=== PATIENT | female | born 1940 | race Caucasian/White ===

== ENCOUNTER 2016-06-19 06:43 | Day surgery (SDC) | payer MEDICARE ==
[~2016-06-19] VITALS: Ht 160 cm; Wt 58.7 kg
--- NOTE | ~2016-06-19 | OR ---
PATIENT'S NAME: MANUELITO GALICIA [facility] AGE: 76 Y [address] ROOM: [place] [address] LOCATION: [facility] [place] ADMIT DATE: 06/19/2016 OR/Procedure Report DISCHARGE DATE: 06/19/2016 FAMILY PHYSICIAN: Hermes Blackmon MD ATTENDING PHYSICIAN: Nina Santiago SURGEON: Nina Santiago MD PUBLIC INFORMATION SPECIALIST: DATE OF PROCEDURE: 06/19/2016 PREOPERATIVE DIAGNOSES: 1. Renal insufficiency. 2. Bilateral hydronephrosis. 3. Idiopathic retroperitoneal fibrosis. 4. Overactive bladder. 5. Urinary incontinence. 6. Painful bladder syndrome. POSTOPERATIVE DIAGNOSES: 1. Renal insufficiency. 2. Bilateral hydronephrosis. 3. Idiopathic retroperitoneal fibrosis. 4. Overactive bladder. 5. Urinary incontinence. 6. Painful bladder syndrome. OPERATIVE PROCEDURES: 1. Cystoscopy with bilateral ureteral stent exchange. 2. Cystoscopy with bladder Botox injection (300 units). ANESTHESIA ADMINISTERED: Monitored anesthesia care. INDICATIONS FOR PROCEDURE: The patient is a pleasant 76-year-old female with history of renal insufficiency, bilateral hydronephrosis, and idiopathic retroperitoneal fibrosis. She most recently underwent bilateral ureteral stent exchange on June 19, 2016 and cystoscopy with bladder Botox injection 200 units. She still has some symptoms of overactive bladder despite the Botox and so we had discussed going up on the dosage to 300 units today. The patient was explained the risks, benefits, indications, and alternatives to above procedure and wished to proceed and consented freely. DESCRIPTION OF OPERATION: The patient was brought back to the operating room, where she was placed on the OR table in the supine position. A procedural time-out was called where the patient identification, surgical site, and procedure were then verified. We also did verify that the patient received an IV Levaquin antibiotic within an hour of beginning the procedure. The patient PATIENT'S NAME: MANUELITO GALICIA [facility] AGE: 76 Y [address] ROOM: [place] [address] LOCATION: [facility] [place] ADMIT DATE: 06/19/2016 OR/Procedure Report DISCHARGE DATE: 06/19/2016 FAMILY PHYSICIAN: Hermes Blackmon MD ATTENDING PHYSICIAN: Nina Santiago was then moved and placed in the low lithotomy position after undergoing successful administration of monitored anesthesia care. She was then prepped and draped in the usual sterile fashion. I began by advancing a rigid cystoscope easily into the patient's urinary bladder. She did have findings consistent with chronic cystitis including pale appearance to the mucosa with several areas of punctate mucosal erythema, multiple bladder trabeculations, and a small capacity bladder. Her ureteral orifices were noted to be in their orthotopic location with the distal curl of the bilateral indwelling ureteral stents visualized. There was no evidence of any bladder tumors. I then used the stent graspers to grab the distal curl of the indwelling right ureteral stent and brought this out through her urethral meatus. I then advanced a Sensor guidewire through the right ureteral stent and up to the patient's right renal collecting system and removed the stent leaving the wire in place. I then placed a new 6-Polish x 22 cm ureteral stent deploying it, noting a good curl fluoroscopically in the patient's right renal collecting system as well as a good curl fluoroscopically in the patient's bladder. I then used the stent graspers to grab the distal curl of the left indwelling ureteral stent and this was brought out through her urethral meatus. I then advanced a Sensor guidewire through the stent and up to the patient's left lower pole collecting system. I then removed the stent in its entirety leaving the wire in place. I then placed a new 6-Polish x 22 cm ureteral stent deploying it, noting a good curl fluoroscopically in the patient's left renal collecting system as well as a good curl fluoroscopically in the patient's bladder. I then reentered with the cystoscope. I had already prepared Botox freshly on the back table at the commencement of her procedure. I took 100 units and diluted it with 10 mL of preservative-free injectable saline to create a 10 unit/mL solution and did this 3 times now having a total of 300 units ready for injection. I then began performing my injections with 1 mL into each site at a depth of approximately 4 to 5 mm. I injected the lateral wall, trigone, and posterior bladder wall. Of note, the injections were somewhat difficult in areas given thick fibrotic bladder, which made injecting into the bladder wall with increased difficulty as we needed more pressure to inject into the bladder wall. A total of 30 injections were administered. The bladder was inspected and there was no evidence of any significant bleeding. I then emptied the patient's bladder, the patient was then taken out of the lithotomy position where she was then awoken from monitored anesthesia care, transferred to recovery bed, and transported to the recovery room in good condition. COMPLICATIONS: None. ESTIMATED BLOOD LOSS: Minimal. DRAINS: Bilateral indwelling 6-Polish x 22 cm indwelling ureteral stent. FOLLOWUP PLAN: We will tentatively plan to see her back for followup in PATIENT'S NAME: MANUELITO GALICIA [facility] AGE: 76 Y [address] ROOM: [place] [address] LOCATION: [facility] [place] ADMIT DATE: 06/19/2016 OR/Procedure Report DISCHARGE DATE: 06/19/2016 FAMILY PHYSICIAN: Hermes Blackmon MD ATTENDING PHYSICIAN: Nina Santiago approximately 6 months for bilateral indwelling ureteral stent exchange. If she does not have any improvement on the 300 unit Botox injection, we may consider her for a trial of InterStim therapy. NINA SANTIAGO MD GP/modl /[id number] CC: MD Harley Epstein MD d: 06/19/16 1100 t: 06/19/16 1723, OPERATIVE SUMMARY
[~2016-06-19 06:43] MED LIST changes: -MYCAMINE100 MG IV; -NORVASC10 MG PO; -TYLENOL EXTRA500 MG PO
[2016-06-19 07:20] LABS: BASOPHIL % 0.4 %; EOSINOPHIL # 0.2 K/uL (0.0-0.5); EOSINOPHIL % 1.7 %; HEMATOCRIT 34.2 % (33.0-46.0); HEMOGLOBIN 10.6 g/dL (10.0-15.0); IMMATURE GRANULOCYTE # 0.1 K/uL (0.0-0.3); IMMATURE GRANULOCYTE % 0.5 %; LYMPHOCYTE # 1.2 K/uL (0.8-4.0); LYMPHOCYTE % 10.3 %; MCV 93.7 fl (83.0-98.0); MONOCYTE # 0.4 K/uL (0.0-1.0); MONOCYTE % 3.3 %; MPV 9.2 fl (9.4-12.4); NEUTROPHIL # (ANC) 9.4 K/uL (1.8-7.8); NEUTROPHIL % 83.8 %; NRBC % 0 /100WBC (0-0.00); PLATELET COUNT 362 K/uL (150-450); RDW-CV 14.9 % (11.9-14.6); WBC 11.2 K/uL (4.0-11.0)
[2016-06-19 07:21] LABS: RBC 3.65 M/uL (3.50-5.50)
[2016-06-19 07:38] LABS: ALBUMIN 3.2 gm/dL (3.5-5.0); ANION GAP 13.6 (10.0-19.0); CALCIUM 9.6 mg/dL (8.5-10.5); CREATININE 2.3 mg/dL (0.5-1.1); POTASSIUM 4.6 mMol/L (3.7-5.1); TOTAL BILIRUBIN 0.4 mg/dL (0.0-1.5); TOTAL PROTEIN 8.9 g/dL (6.0-8.4)
[2016-06-19] MEDS ORDERED: TYLENOL EXTRA500 MG PO (19:54)
== END 2016-06-19 10:12 | disposition disaster alternative care site (69) ==
LOC: GSDC 06:43 → GPOC 07:00 → GSDC 10:12 → GPOC 13:00
PROVIDERS: Urology
PROC: 0T788DZ Dilation of Bilateral Ureters with Intraluminal Device, Via Natural or Artificial Opening Endoscopic (ICD-10-PCS; principal; 2016-06-19)
PROC: 0TP98DZ Removal of Intraluminal Device from Ureter, Via Natural or Artificial Opening Endoscopic (ICD-10-PCS; 2016-06-19)
PROC: 3E0K8GC Introduction of Other Therapeutic Substance into Genitourinary Tract, Via Natural or Artificial Opening Endoscopic (ICD-10-PCS; 2016-06-19)
DX: N13.30 Unspecified hydronephrosis (principal); N18.4 Chronic kidney disease, stage 4 (severe); N32.81 Overactive bladder; R32 Unspecified urinary incontinence; N13.5 Crossing vessel and stricture of ureter without hydronephrosis; E11.29 Type 2 diabetes mellitus with other diabetic kidney complication; D50.9 Iron deficiency anemia, unspecified; E78.5 Hyperlipidemia, unspecified
CPT/HCPCS: C1769; J0585; J1956; J2001; J7030

== ENCOUNTER 2016-06-19 14:42 | Inpatient (IN) | payer MEDICARE ==
[~2016-06-19] VITALS: Ht 160 cm; Wt 64.6 kg
--- NOTE | ~2016-06-19 | DS ---
PATIENT'S NAME: MANUELITO GALICIA [facility] AGE: 76 Y [address] ROOM: [address] [address] LOCATION: [facility] [place] ADMIT DATE: 06/19/2016 Discharge Summary DISCHARGE DATE: 06/25/2016 FAMILY PHYSICIAN: Hermes Blackmon MD ATTENDING PHYSIC[facility]SE: The patient was admitted with systemic inflammatory response syndrome, secondary to her urologic procedure. She developed a fever and was found to have acute kidney injury. The patient was admitted, pancultured, and started on Levaquin. Tylenol was used for her fevers. Urology followed up with the patient on 06/20/2016 and recommended continuing the antibiotics at this time while cultures were pending. Sugars and laboratory studies were followed closely. Dr. Acosta was consulted for acute kidney injury. The patient was placed on heparin subcutaneous for DVT prophylaxis and sliding scale insulin was ordered for close glucose monitoring. The patient was changed to Zyvox and meropenem on the . Nephrology consulted later on the and felt that the DARY was due to her current sepsis. The patient did have some loose stools and C. diff was ruled out. The patient did have some hypotension and was given fluid boluses as well as potassium boluses. On the , the patient was feeling some better. She did undergo CT scan of the abdomen and pelvis, which shows bilateral hydronephrosis with stents in place. On the , blood culture was positive for anaerobic yeast and micafungin was initiated. The patient's creatinine continued to trend down with her IV fluids. We were able to do a voiding trial on 06/22/2016, which was successful. ID consult was placed on the as well. On the , we were able to discontinue the Levaquin as all cultures had been negative for bacterial sources. On the , it was felt that the patient could safely be discharged pending visit from Infectious Disease. However, in order to setup for outpatient antifungals, we did have to keep the patient one day longer. PICC was placed for long-term therapy. Infectious Disease recommended we continue the micafungin 100 mg a day through 07/05/2016. All paperwork was initiated and orders were received from the Cancer [facility]; and on the , it was felt that the patient could safely be discharged without any further workup. The patient was agreeable to this plan of action. DIAGNOSTICS LABORATORY STUDIES: Sedimentation rate on the 4th was 76. On admission, white blood cell count was 12.2, hemoglobin 9, hematocrit 28.9, and platelets 237. Closer to discharge, white blood cell count was 3.2, hemoglobin was 7.7, hematocrit 24.5, and platelets are 126. Accu-Cheks ranged from 72 to 306. Iron studies done on the 3rd shows serum iron at 37 mcg, TIBC was 213, percent saturation was 17, hemoglobin A1c was 6.9, CRP was 17. On admission, sodium 141, potassium 4.0, chloride 111, bicarb 18, glucose 204, BUN 52, creatinine 2.2, total cholesterol 99, triglycerides 109, HDL 46, LDL 32, and ferritin was 1288.4. Procalcitonin went from 0.84 up to 22 and back down to 7.5. P-ANCA and C-ANCA were both negative. Double-stranded DNA was PATIENT'S NAME: MANUELITO GALICIA [facility] AGE: 76 Y [address] ROOM: [address] [place] [id number] LOCATION: [facility] [place] ADMIT DATE: 06/19/2016 Discharge Summary DISCHARGE DATE: 06/25/2016 FAMILY PHYSICIAN: Hermes Blackmon MD ATTENDING PHYSICIAN: Eleonora Chow negative. Garvin light chains were elevated at 3.6. Lambda and kappa lambda were within normal limits. Urine protein electrophoresis suggest tubular typewritten proteinuria shows increased urine excretion of low-molecular weight protein such as retinol binding, proteins, and beta-2 microglobulin. Blood cultures from 06/19/2016 showed [place]. Urine culture from 06/20/2016 also showed [place]. Subsequent blood and urine cultures were negative. TINO titer was negative. Chest x-ray on 06/20/2016 shows normal portable chest, on 06/21/2016, it was again normal, and on 06/22/2016 2-view shows small bilateral pleural fluid collections, heart size and pulmonary vasculature within normal limits. CT scan of the abdomen and pelvis, without contrast, on 06/20/2016, shows mild bilateral hydronephrosis, chronic, with ureteral stents in place. Nonspecific perinephric stranding. Pyelonephritis cannot be excluded. Prominent stool suggesting constipation noted. Complete abdominal ultrasound shows [id number] bilateral hydronephrosis with ureteral stent in place. Echogenic renal pelvis bilaterally. No evidence of infection elsewhere in the body. DISCHARGE INSTRUCTIONS: The patient is discharged home under the care of Dr. Hermes Blackmon and will see him in 1 week. She will see Dr. Santiago in 4-6 weeks in the clinic. Her diet is diabetic. Activity is as tolerated. The patient was instructed to get daily IV micafungin at [facility], starting on 06/25/2016, she is to present there at 2:30. DISCHARGE MEDICATIONS: 1. Tylenol 1000 mg every 6 hours as needed. 2. Micafungin as directed. 3. Amlodipine 10 mg daily. 4. Lopressor 12.5 mg p.o. twice daily. 5. Lipitor 80 mg at bedtime. 6. NovoLog 8 units subcu 3 times daily before meals. 7. Lantus 15 units subcu at bedtime. 8. Protonix 40 mg daily. 9. MiraLAX 17 g daily p.r.n. 10. Potassium chloride 10 mEq daily. 11. Florastor 250 mg twice daily. 12. Toviaz 8 mg p.o. at bedtime. 13. Tylenol PM 1 tab at bedtime. 14. Multivitamin 1 tab daily. We do appreciate participating in this patient's care and thank you very much for the ability to serve her while hospitalized at [facility]. Time spent coordinating details of discharge was greater than 30 minutes of which was spent coordinating with consulting physicians, care management, completion of medication reconciliation, and education to the patient and family on the above-mentioned diagnoses. PATIENT'S NAME: MANUELITO GALICIA [facility] AGE: 76 Y [address] ROOM: [place] [address] LOCATION: [facility] [place] ADMIT DATE: 06/19/2016 Discharge Summary DISCHARGE DATE: 06/25/2016 FAMILY PHYSICIAN: Hermes Blackmon MD ATTENDING PHYSICIAN: Eleonora Chow BECCA GARDINER FOR ELEONORA CHOW MD LISSET/modl /[id number] d: 07/08/16 0250 t: 07/09/16 0914, DISCHARGE SUMMARY
--- NOTE | ~2016-06-19 | HP ---
PATIENT'S NAME: MANUELITO GALICIA [facility] AGE: 76 Y [address] ROOM: [place] [address] LOCATION: [facility] [place] ADMIT DATE: 06/19/2016 History & Physical DISCHARGE DATE: FAMILY PHYSICIAN: Hermes Blackmon MD ATTENDING PHYSICIAN: Eleonora Chow DATE OF SERVICE: CHIEF COMPLAINT: SIRS, fever, and chills. HISTORY OF PRESENT ILLNESS: This is a 76-year-old female with a long history of complicated urogenital problems who presents to the emergency room with complaints of fever and chills since midday today. The patient is known to have recurrent ureteral exchange procedures and Botox injections for her urological problems requiring multiple procedures for that. Apparently, she had another ureteral exchange procedure with Botox injection earlier today with Dr. Santiago and returned home. However, shortly following returning home, she started having symptoms of fever and chills with temperature that she measured at home initially being in the low 90s going high up to 102 the last time she checked it. The patient also during this time complained of having generalized shaking as well as associated nausea and vomiting with this. Also, complains of some suprapubic abdominal pain as well. The patient however denies any chest pain, shortness of breath, dizziness, or lightheadedness. No complaints of diarrhea or constipation. PAST MEDICAL HISTORY: The patient has a history of hyperlipidemia and type 2 diabetes. SOCIAL HISTORY: The patient lives at home by herself and is generally able to do her chores by herself. Denies any history of smoking or alcohol use. FAMILY HISTORY: The patient has a history of diabetes in both her parents. REVIEW OF SYSTEMS: A 10-point review of systems was conducted and were all negative except as mentioned in the HPI. PHYSICAL EXAMINATION: VITAL SIGNS: Blood pressure 126/62, pulse 86, respiratory rate is 16, temperature 98.2, and saturating 98% on room air. HEENT: The patient has dry mucous membranes, but no conjunctival pallor or PATIENT'S NAME: MANUELITO GALICIA [facility] AGE: 76 Y [address] ROOM: [place] [address] LOCATION: [facility] [place] ADMIT DATE: 06/19/2016 History & Physical DISCHARGE DATE: FAMILY PHYSICIAN: Hermes Blackmon MD ATTENDING PHYSICIAN: Eleonora Chow scleral icterus noted. GENERAL: The patient is awake, alert, and oriented x3, in no acute distress. SKIN: Without rash or lesions. HEART: S1, S2, regular rate and rhythm. CHEST: Clear to auscultation bilaterally. ABDOMEN: Soft, mild tenderness to the suprapubic and left lower quadrant area, positive bowel sounds. EXTREMITIES: Without edema. MUSCULOSKELETAL: Without joint or muscle pain. NEURO: Grossly nonfocal. LABORATORY DATA: White blood cell count 12.2, hemoglobin 9, hematocrit 28.9, and platelets 257. UA positive for pyuria and leuk esterase. ASSESSMENT AND PLAN: 1. Systemic inflammatory response syndrome, likely following urologic procedure. The patient just had a ureteral exchange procedure and Botox injection with Dr. Santiago earlier in the day. This is likely a result of that. A urinalysis does show some possible urinary tract infection. Looked out for past cultures and I cannot see anything resistant that she has grown in the past. Also, start her on Levaquin renally dosed for now. 2. Acute kidney injury on chronic kidney disease, 3. The patient's creatinine in December 18.3 and today it is 2.2. We will hydrate and monitor kidney function with daily labs. 3. Type 2 diabetes. We will resume the patient's regimen as well as use sliding scale insulin as needed. 4. Deep vein thrombosis prophylaxis. We will use subcutaneous heparin. ELEONORA CHOW MD BG/modl /[id number] D: 357 T: [id number] HISTORY & PHYSICAL
--- NOTE | ~2016-06-19 | ER ---
PATIENT'S NAME: MANUELITO GALICIA [facility] AGE: 76 Y [address] ROOM: [place] [address] LOCATION: [facility] [place] ADMIT DATE: 06/19/2016 ER/Outpatient Report DISCHARGE DATE: FAMILY PHYSICIAN: GERHARD JACOBO MD ATTENDING PHYSICIAN: ELEONORA CHOW Time of Arrival: 1442 hours. Time of Evaluation/Exam: 1442 hours. CHIEF COMPLAINT: Fever. HISTORY OF PRESENT ILLNESS: The patient states that she had a procedure done this morning around 9 o'clock, where they placed two renal stents and injected her with Botox. She was discharged to home around 10 o'clock. She was feeling fine and then about 1 o'clock this afternoon, she developed a fever and has increased weakness. She states this happened the last time she had a similar procedure back at the end of November. She has taken Tylenol for her fever at home. She did call 911, was transported here per EMS, and paramedics. They did start an IV in her right hand and started fluids of normal saline. She denies having any chest pain. Has not felt short of breath. Has some generalized nausea, but no vomiting. Does have some lower abdominal discomfort. She states that it tends to be chronic at times because of her history of cystitis. ALLERGIES: SULFA AND METFORMIN. CURRENT MEDICATIONS: On the chart and reviewed by me. PAST MEDICAL HISTORY: Includes: 1. Chronic kidney disease. 2. Idiopathic retroperitoneal fibrosis. 3. Overactive bladder. 4. Urinary incontinence. 5. Cystitis. 6. Hypertension. 7. GERD. 8. Elevated cholesterol. PAST SURGICAL HISTORY: 1. Appendectomy. 2. Tonsillectomy. PATIENT'S NAME: MANUELITO GALICIA [facility] AGE: 76 Y [address] ROOM: [address] [address] LOCATION: [facility] [place] ADMIT DATE: 06/19/2016 ER/Outpatient Report DISCHARGE DATE: FAMILY PHYSICIAN: GERHARD JACOBO MD ATTENDING PHYSICIAN: ELEONORA CHOW 3. x3. 4. Stent placement with Botox, numerous times, the last being today. SOCIAL HISTORY: She lives at home alone. Denies use of tobacco, drugs, or alcohol. REVIEW OF SYSTEMS: All negative other than those mentioned in the HPI. PHYSICAL EXAMINATION: VITAL SIGNS: She weighed 61.4 kg. Blood pressure is 103/60; pulse of 124; respirations 16; temperature of 102, tympanic; and O2 saturation is 95% on room air. GENERAL: She is awake, alert, and oriented x4. SKIN: [place], warm, and dry. RESPIRATORY: Respirations are even and nonlabored. Lung sounds are clear throughout. HEART: Regular rate and rhythm. ABDOMEN: Soft and nondistended. Bowel sounds are present. LABORATORY DATA: Laboratory work was drawn. Her CBC shows a white count of 12.2 with a hemoglobin of 9.0, hematocrit of 28.9, and her ANC is 11.9. Sodium is 141, potassium is 4 with a chloride of 111, and BUN 52 with a creatinine of 2.2. Her creatinine was 2.3 prior to start of the procedure. GFR is 22. Catheterized UA was obtained. It shows 500 leukocytes, but negative nitrites. The micro shows packed white blood cells, negative bacteria. Lactate is 2.4 with a procalcitonin of 0.84. Her Accu-Chek was 220, and Chem glucose shows 204. The patient was given fluids, Zofran 4 mg IV, and Tylenol [address] Santiago was contacted regarding the patient. The patient is to be placed in observation for fever and acute on chronic kidney disease. Dr. Chow was contacted. IMPRESSION: 1. Fever. 2. Acute on chronic kidney disease. PLAN: The patient will be placed on observation in Med-Surg floor with Dr. Chow and Dr. Santiago. The patient and her family verbalized understanding. PATIENT'S NAME: MANUELITO GALICIA [facility] AGE: 76 Y [address] ROOM: [address] [place], [place] [address] LOCATION: [facility] [place] ADMIT DATE: 06/19/2016 ER/Outpatient Report DISCHARGE DATE: FAMILY PHYSICIAN: GERHARD JACOBO MD ATTENDING PHYSICIAN: ELEONORA CHOW APRN FOR MD PARVEEN REECE/christian /[id number] d: 06/19/162120 t: 06/30/16 0641, OUTPATIENT REPORT
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
--- NOTE | ~2016-06-19 | CON ---
PATIENT'S NAME: MANUELITO GALICIA [facility] AGE: 76 Y [address] ROOM: [place] [address] [address]: [facility] [place] ADMIT DATE: 06/19/2016 Consultation DISCHARGE DATE: FAMILY PHYSICIAN: GERHARD JACOBO MD ATTENDING PHYSICIAN: ELEONORA CHOW DATE OF CONSULTATION: 06/24/2016 REFERRING PHYSICIAN: Eleonora Chow MD REASON FOR CONSULTATION: Candidemia. HISTORY OF PRESENT ILLNESS: This is a 76-year-old lady with a history of complicated urogenital problem especially with idiopathic retroperitoneal fibrosis and that causing the bilateral hydronephrosis and has been having bilateral ureteral stents, which been changes. Most recently on 19 June 2016, the patient had a successful change of stent and then discharged; however, that night developed fever up to 102; so, came to the emergency room, she was found to have fever and leukocytosis and blood culture obtained and then broad-spectrum antibiotic. Later, blood culture positive with Shawnee lipolytica and also urine culture positive with pyuria and grew Shawnee glabrata. Antibiotic changed to micafungin and the patient improved and repeat blood culture on 22 of June has been negative. ID consultation requested for antibiotic management. The patient denied any fever or chills, no cough or mucus, no nausea or vomiting, has some loose stool, no burning on urination, no frequent urination, and no side or flank pain. ALLERGIES: SULFA CAUSING ITCHING AND METFORMIN CAUSING DIARRHEA. PAST MEDICAL HISTORY: Hyperlipidemia, type 2 diabetes, and idiopathic retroperitoneal fibrosis. PAST SURGICAL HISTORY: Bilateral ureteral stents. SOCIAL HISTORY: Denies smoking. FAMILY HISTORY: Positive for diabetes. REVIEW OF SYSTEMS: As above. PATIENT'S NAME: MANUELITO GALICIA [facility] AGE: 76 Y [address] ROOM: [place] [id number] LOCATION: [facility] [place] ADMIT DATE: 06/19/2016 Consultation DISCHARGE DATE: FAMILY PHYSICIAN: GERHARD JACOBO MD ATTENDING PHYSICIAN: ELEONORA CHOW MEDICATIONS: Antibiotic nieto has been on micafungin since June, but used to be on meropenem, Zyvox, and levofloxacin, which is stopped on 22 of June. PHYSICAL EXAMINATION: VITAL SIGNS: Blood pressure 157/69, pulse rate 98, respiration 18, temperature 98.0, no fever since 20 June 2016. GENERAL: In NAD. HEENT: Conjunctivae pink. Sclerae not icteric. No stomatitis. NECK: Supple. LUNGS: Sound clear to auscultation bilaterally. HEART: Regular rhythm and rate. ABDOMEN: Bowel sounds positive. No tenderness or rebound tenderness. No CVA tenderness. SKIN: No rash noted. MUSCULOSKELETAL: No joint swelling or pain noted. LABORATORY DATA: White blood cell 3.2, hemoglobin 7.7, platelet 126, and procalcitonin done on 22 of June is 7.5. Chemistry, BUN on 22 of June is 24, creatinine is 1.3. UA done on 19 of June is positive pyuria and micro. Blood culture done on 19 of June total 2 is Shawnee lipolytica, urine culture done on 19 of June is no growth and negative, urine culture done on 20 of June is Shawnee glabrata, colony count is 50,000 to 100,000, on 22 of June, stool C. diff toxin is negative, 22 of June blood culture x2 is no growth, and CT scan done on 20 of June abdomen and pelvis showed that moderate bilateral hydronephrosis chronic with ureteral stent in place. There is nonspecific perinephric stranding. ASSESSMENT AND PLAN: This is a 76-year-old lady with a history of idiopathic retroperitoneal fibrosis and bilateral hydronephrosis has been having stent exchange regularly and on the 19 of June had a stent changes and discharged come back with a fever and leukocytosis found to have candidemia by Shawnee lipolytica also UA was positive with pyuria and urine culture grows Shawnee glabrata and started on micafungin and blood culture clear on 22 of June and the patient denied any urinary symptoms at this point and fever improved and no leukocytosis and the patient doing fine; so, recommend continue intravenous micafungin 100 mg q.24 h. through 05 July 2016 and follow up to ID clinic in 2 weeks and need weekly labs on Wednesday, CBC, CMP, and fax to ID Clinic [phone]. The patient need a PICC line and although micafungin is not great medicine for urinary tract infection because the patient is already improving we will continue intravenous micafungin instead of change it to amphotericin. PATIENT'S NAME: MANUELITO GALICIA [facility] AGE: 76 Y [address] ROOM: [address] [address] LOCATION: [facility] [place] ADMIT DATE: 06/19/2016 Consultation DISCHARGE DATE: FAMILY PHYSICIAN: GERHARD JACOBO MD ATTENDING PHYSICIAN: ELEONORA CHOW MD HUI SMITH/christian /[id number] d: 06/24/16 2306 t: 06/25/16 0910, CONSULTATION REPORT
--- NOTE | ~2016-06-19 | DS ---
PATIENT'S NAME: MANUELITO GALICIA [facility] AGE: 76 Y [address] ROOM: [place] [address] [place] [facility] [place]: 06/19/2016 Discharge Summary DISCHARGE DATE: 06/25/2016 FAMILY PHYSICIAN: Hermes Blackmon MD ATTENDING PHYSICIAN: Eleonora Chow FINAL DIAGNOSES: 1. Sepsis. 2. Fungemia. 3. Obstructive uropathy. 4. Acute tubular necrosis secondary to sepsis. 5. Shawnee urinary tract infection. PROCEDURES PERFORMED: Bilateral stent exchange and Botox by Dr. Santiago. CONSULTANTS ON THE CASE: Dr. Acosta for Nephrology; Dr. Peñaloza for Infectious Disease. HOSPITAL COURSE: Please see details of admission in H and P by Dr. Chow. Briefly, the patient was admitted with systemic inflammatory response syndrome secondary to urologic procedure. The patient developed fever and acute kidney disease secondary to her inflammatory response. BECCA GARDINER FOR ELEONORA CHOW MD LISSET/modl /[id number] d: 07/08/164 t: 07/09/16 0911, DISCHARGE SUMMARY
[2016-06-19 15:24] LABS: BASOPHIL % 0.1 %; EOSINOPHIL % 0.1 %; HEMATOCRIT 28.9 % (33.0-46.0); IMMATURE GRANULOCYTE # 0.1 K/uL (0.0-0.3); IMMATURE GRANULOCYTE % 0.7 %; LYMPHOCYTE # 0.1 K/uL (0.8-4.0); LYMPHOCYTE % 1.1 %; MCH 28.9 pg (27.0-34.0); MCHC 31.1 gm/dL (32.0-36.5); MCV 92.9 fl (83.0-98.0); MONOCYTE % 0.3 %; NEUTROPHIL # (ANC) 11.9 K/uL (1.8-7.8); NEUTROPHIL % 97.7 %; NRBC % 0 /100WBC (0-0.00); RBC 3.11 M/uL (3.50-5.50); RDW-CV 14.9 % (11.9-14.6); WBC 12.2 K/uL (4.0-11.0)
[2016-06-19 15:28] LABS: PLATELET COUNT 237 K/uL (150-450)
[2016-06-19 15:40] LABS: BILIRUBIN URINE NEGATIVE (NEGATIVE); BLOOD URINE 250 /UL (NEGATIVE); GLUCOSE URINE 50 mg/dL (NEGATIVE); KETONE URINE NEGATIVE (NEGATIVE); LEUKOCYTES URINE 500 /UL (NEGATIVE); NITRITE URINE NEGATIVE (NEGATIVE); PROTEIN URINE 500 mg/dL (NEGATIVE); UROBILINOGEN URINE NORMAL (NORMAL)
[2016-06-19 15:45] LABS: ALBUMIN 2.5 gm/dL (3.5-5.0); CALCIUM 8.4 mg/dL (8.5-10.5); CREATININE 2.2 mg/dL (0.5-1.1); TOTAL PROTEIN 7.4 g/dL (6.0-8.4)
[2016-06-19 15:46] LABS: TOTAL BILIRUBIN 0.3 mg/dL (0.0-1.5)
[2016-06-19 16:00] LABS: COLOR URINE YELLOW (YELLOW); TURBIDITY URINE 4+ (CLEAR)
[2016-06-19 16:08] LABS: RBC URINE FULL FIELD #/HPF (NEGATIVE); WBC URINE PACKED FIELD #/HPF (NEGATIVE)
[2016-06-19 16:09] LABS: EPITHELIAL URINE NEGATIVE #/HPF (NEGATIVE)
[2016-06-19 16:10] LABS: BACTERIA URINE NEGATIVE (NEGATIVE)
[2016-06-19] MEDS ORDERED: TYLENOL EXTRA500 MG PO (19:54)
[2016-06-19 22:04] LABS: BILIRUBIN URINE NEGATIVE (NEGATIVE); BLOOD URINE 250 /UL (NEGATIVE); GLUCOSE URINE NEGATIVE (NEGATIVE); KETONE URINE 5 mg/dL (NEGATIVE); LEUKOCYTES URINE 500 /UL (NEGATIVE); NITRITE URINE POSITIVE (NEGATIVE); PROTEIN URINE 500 mg/dL (NEGATIVE); UROBILINOGEN URINE NORMAL (NORMAL)
[2016-06-19 22:08] LABS: COLOR URINE PINK (YELLOW); TURBIDITY URINE 4+ (CLEAR)
[2016-06-19 22:10] LABS: WBC URINE PACKED FIELD #/HPF (NEGATIVE)
[2016-06-19 22:11] LABS: RBC URINE 50-100 #/HPF (NEGATIVE)
[2016-06-19 22:12] LABS: BACTERIA URINE RARE (NEGATIVE)
[2016-06-20 05:16] LABS: HEMATOCRIT 27.2 % (33.0-46.0); HEMOGLOBIN 8.7 g/dL (10.0-15.0); MCH 29.5 pg (27.0-34.0); MCV 92.2 fl (83.0-98.0); MPV 9.2 fl (9.4-12.4); PLATELET COUNT 265 K/uL (150-450); RBC 2.95 M/uL (3.50-5.50); RDW-CV 15.3 % (11.9-14.6)
[2016-06-20 05:20] LABS: WBC 25.4 K/uL (4.0-11.0)
[2016-06-20 06:12] LABS: ANION GAP 15.4 (10.0-19.0); CALCIUM 7.9 mg/dL (8.5-10.5); CREATININE 2.5 mg/dL (0.5-1.1); MAGNESIUM 1.8 mg/dL (1.3-2.6); PHOSPHORUS 3.2 mg/dL (2.5-4.9); POTASSIUM 4.4 mMol/L (3.7-5.1)
[2016-06-20 06:34] LABS: ABSOLUTE NEUTROPHIL CT (ANC) 23.1 K/uL (1.8-7.8); BANDED NEUTROPHIL # 5.1 K/uL (0.0-0.1); BANDED NEUTROPHILS % 20 %; LYMPHOCYTE # 1.3 K/uL (0.8-4.0); LYMPHOCYTE % 5 %
[2016-06-20 07:28] LABS: SEGMENTED NEUTROPHIL % 71 %
[2016-06-21 05:10] LABS: MCV 90.6 fl (83.0-98.0); MPV 9.4 fl (9.4-12.4); RBC 2.76 M/uL (3.50-5.50); RDW-CV 14.9 % (11.9-14.6); WBC 9.5 K/uL (4.0-11.0)
[2016-06-21 05:13] LABS: PLATELET COUNT 164 K/uL (150-450)
[2016-06-21 05:16] LABS: INR - (THERAPEUTIC) 1.1 (0.9-1.1); PROTIME 11.9 SECONDS (9.6-11.1)
[2016-06-21 05:26] LABS: CREATININE 1.9 mg/dL (0.5-1.1); MAGNESIUM 1.8 mg/dL (1.3-2.6); PHOSPHORUS 2.2 mg/dL (2.5-4.9); TOTAL PROTEIN 5.5 g/dL (6.0-8.4)
[2016-06-21 05:30] LABS: ALBUMIN 1.8 gm/dL (3.5-5.0); ANION GAP 11.7 (10.0-19.0); CALCIUM 6.9 mg/dL (8.5-10.5); POTASSIUM 2.7 mMol/L (3.7-5.1); TOTAL BILIRUBIN 0.6 mg/dL (0.0-1.5)
[2016-06-21 05:56] LABS: ABSOLUTE NEUTROPHIL CT (ANC) 8.7 K/uL (1.8-7.8); BANDED NEUTROPHIL # 1.9 K/uL (0.0-0.1); BANDED NEUTROPHILS % 20 %; LYMPHOCYTE # 0.5 K/uL (0.8-4.0); LYMPHOCYTE % 5 %; MONOCYTE # 0.3 K/uL (0.0-1.0); SEGMENTED NEUTROPHIL # 6.8 K/uL (1.8-7.8); SEGMENTED NEUTROPHIL % 72 %
[2016-06-21 14:36] LABS: ANION GAP 11.2 (10.0-19.0); CALCIUM 6.9 mg/dL (8.5-10.5); CREATININE 1.6 mg/dL (0.5-1.1); POTASSIUM 3.2 mMol/L (3.7-5.1)
[2016-06-22 05:48] LABS: HEMATOCRIT 24.2 % (33.0-46.0); MCH 29.1 pg (27.0-34.0); MCHC 31.4 gm/dL (32.0-36.5); MCV 92.7 fl (83.0-98.0); MPV 9.2 fl (9.4-12.4); RBC 2.61 M/uL (3.50-5.50); RDW-CV 14.9 % (11.9-14.6); WBC 6.7 K/uL (4.0-11.0)
[2016-06-22 05:54] LABS: HEMOGLOBIN 7.6 g/dL (10.0-15.0)
[2016-06-22 06:08] LABS: ANION GAP 11.7 (10.0-19.0); CALCIUM 7.5 mg/dL (8.5-10.5); CREATININE 1.5 mg/dL (0.5-1.1); MAGNESIUM 1.7 mg/dL (1.3-2.6); POTASSIUM 3.7 mMol/L (3.7-5.1); TOTAL BILIRUBIN 0.5 mg/dL (0.0-1.5); TOTAL PROTEIN 5.5 g/dL (6.0-8.4)
[2016-06-22 06:14] LABS: ALBUMIN 1.7 gm/dL (3.5-5.0); PHOSPHORUS 1.4 mg/dL (2.5-4.9)
[2016-06-23 06:25] LABS: CREATININE 1.4 mg/dL (0.5-1.1)
[2016-06-23 06:27] LABS: ALBUMIN 1.7 gm/dL (3.5-5.0)
[2016-06-24 05:45] LABS: HEMATOCRIT 24.5 % (33.0-46.0); MCH 28.9 pg (27.0-34.0); MCHC 31.4 gm/dL (32.0-36.5); MCV 92.1 fl (83.0-98.0); MPV 9.2 fl (9.4-12.4); PLATELET COUNT 126 K/uL (150-450); RBC 2.66 M/uL (3.50-5.50); RDW-CV 14.9 % (11.9-14.6); WBC 3.2 K/uL (4.0-11.0)
[2016-06-24 05:46] LABS: HEMOGLOBIN 7.7 g/dL (10.0-15.0)
[2016-06-24 05:58] LABS: ALBUMIN 1.8 gm/dL (3.5-5.0); ANION GAP 14.9 (10.0-19.0); CALCIUM 8.3 mg/dL (8.5-10.5); CREATININE 1.3 mg/dL (0.5-1.1); PHOSPHORUS 2.4 mg/dL (2.5-4.9); POTASSIUM 3.9 mMol/L (3.7-5.1)
[2016-06-24 06:07] LABS: MAGNESIUM 1.7 mg/dL (1.3-2.6)
[2016-06-24 06:19] LABS: ABSOLUTE NEUTROPHIL CT (ANC) 2.1 K/uL (1.8-7.8); BANDED NEUTROPHIL # 0.6 K/uL (0.0-0.1); BANDED NEUTROPHILS % 19 %; LYMPHOCYTE # 0.9 K/uL (0.8-4.0); LYMPHOCYTE % 28 %; MONOCYTE # 0.1 K/uL (0.0-1.0); SEGMENTED NEUTROPHIL # 1.4 K/uL (1.8-7.8); SEGMENTED NEUTROPHIL % 45 %
[2016-06-25 05:43] LABS: ANION GAP 13.2 (10.0-19.0); CALCIUM 8.3 mg/dL (8.5-10.5); CREATININE 1.3 mg/dL (0.5-1.1); PHOSPHORUS 3.2 mg/dL (2.5-4.9); POTASSIUM 4.2 mMol/L (3.7-5.1)
[2016-06-25] MEDS ORDERED: NORVASC10 MG PO (17:34)
[2016-06-25] MEDS ORDERED: MYCAMINE100 MG IV (17:37)
[2016-06-25] MEDS ORDERED: FLORASTOR250 MG PO (17:38)
== END 2016-06-25 19:25 | disposition disaster alternative care site (69) | DRG 871 ==
LOC: GMED 14:42 → GMSU 17:08
PROVIDERS: Internal Medicine; Internal Medicine Nephrology; Nurse Practitioner Family; Physician Assistant; ADMIT Internal Medicine
PROC: 02HV33Z Insertion of Infusion Device into Superior Vena Cava, Percutaneous Approach (ICD-10-PCS; principal; 2016-06-24)
DX: A41.9 Sepsis, unspecified organism (principal); N17.0 Acute kidney failure with tubular necrosis; E87.2 Acidosis; B49 Unspecified mycosis; E83.39 Other disorders of phosphorus metabolism; B37.49 Other urogenital candidiasis; N12 Tubulo-interstitial nephritis, not specified as acute or chronic; N13.6 Pyonephrosis; D64.9 Anemia, unspecified; E11.9 Type 2 diabetes mellitus without complications; I12.9 Hypertensive chronic kidney disease with stage 1 through stage 4 chronic kidney disease, or unspecified chronic kidney disease; E78.5 Hyperlipidemia, unspecified; E87.6 Hypokalemia; N13.9 Obstructive and reflux uropathy, unspecified; N18.3 Chronic kidney disease, stage 3 (moderate); R65.20 Severe sepsis without septic shock; Z66 Do not resuscitate
CPT/HCPCS: C1769; J0585; J1644; J1956; J2001; J2020; J2185; J2248; J2405; J3480; J7030; J7040; J7050; J7060

== ENCOUNTER → 2016-06-19 | Outpatient (CLI) | payer MEDICARE ==
[~2016-06-19] MED LIST: AMARYL4 MG PO; AMOXIL (BID DO875 MG PO; DITROPAN5 MG PO; ELAVIL10 MG PO; FEOSOL325 MG PO; FLORASTOR250 MG PO; IRON325 M1 PO; K-TAB ER10 MEQ PO; LANTUS (IN100 UNIT/M SUB-Q; LANTUS SOL100 UNIT/1 SUB-Q; LIPITOR40 MG PO; LIPITOR80 MG PO; LISINOPRIL-HCT1 EACH PO; LOPRESSOR25 MG PO; MAG-OX-400(241400 MG PO; MIRALAX PO527 GM/BOT PO; MOBIC7.5 MG PO; MULTI VITAMIN1 EACH PO; MYCAMINE100 MG IV; NORCO 5-325 MG1 TAB PO; NORVASC10 MG PO; NOVOLOG FL100 UNIT/1 SUB-Q; NOVOLOG100 UNIT/M SUB-Q; ONE DAILY1 EACH PO; PROTONIX40 MG PO; SODIUM BICARBO650 MG PO; TOVIAZ4 MG PO; TYLENOL EXTRA500 MG PO; TYLENOL PM EX-1 EACH PO; TYLENOL325 MG PO; VESICARE5 MG PO
== END | disposition disaster alternative care site (69) ==
LOC: GAMB 14:21
DX: R53.1 Weakness (principal); R11.0 Nausea; Z88.1 Allergy status to other antibiotic agents; Z88.8 Allergy status to other drugs, medicaments and biological substances
CPT/HCPCS: A0425; A0429; J7030

== ENCOUNTER → 2016-09-30 | Outpatient (CLI) | payer MEDICARE ==
[~2016-09-30] MED LIST changes: +MYCAMINE100 MG IV; +NORVASC10 MG PO; +TYLENOL EXTRA500 MG PO
== END | disposition disaster alternative care site (69) ==
LOC: LGSMG 12:01
DX: N18.4 Chronic kidney disease, stage 4 (severe) (principal); Z00.00 Encounter for general adult medical examination without abnormal findings; Z79.899 Other long term (current) drug therapy; E87.6 Hypokalemia; D50.9 Iron deficiency anemia, unspecified; R80.9 Proteinuria, unspecified